=== PATIENT | female | born 1965 | race African-American/Black ===

== ENCOUNTER 2017-10-18 08:13 | Emergency (ER) | payer MEDICAID, MEDICARE ==
[2017-10-18 08:50] VITALS: BP 114/85
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
--- NOTE | 2017-10-18 10:07 | RADIOLOGY REPORT (SQ) ---
EXAM DESCRIPTION: WRIST LEFT 3 VIEWS COMPLETED DATE/TIME: 10/18/2017 9:47 am REASON FOR STUDY: wrist pain COMPARISON: None. NUMBER OF VIEWS: Four views. TECHNIQUE: AP, lateral, oblique, and scaphoid radiographic images acquired of the left wrist. LIMITATIONS: None. FINDINGS: MINERALIZATION: Normal. BONES: No acute fracture or dislocation. No worrisome bone lesions. Normal alignment. Mild degenerati ve change at the 1st carpometacarpal joint with mild sclerosis and small osteophytes. JOINTS: No erosions. No jose-articular osteopenia. Soft tissue calcification at the base of thumb. SOFT TISSUES: No swelling. No calcifications. OTHER: No other significant finding. IMPRESSION: MILD DEGENERATIVE CHANGES AT THE BASE OF THE THUMB. NO ACUTE FINDINGS. NO SIGNIFICANT BONY FINDINGS. TECHNICAL DOCUMENTATION: JOB ID: [id number]- All Rights Reserved
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
[2017-10-18] MEDS ORDERED: ACETAMINOPHEN 325 MG TABLET PO ONE (11:36)
== END 2017-10-18 11:50 | disposition home or self-care (01) ==
LOC: ER 08:13
DX: H57.11 Ocular pain, right eye (principal); M25.532 Pain in left wrist; F32.9 Major depressive disorder, single episode, unspecified; R51 Headache; Z98.890 Other specified postprocedural states; Z87.891 Personal history of nicotine dependence
CPT/HCPCS: 99284

== ENCOUNTER 2017-10-21 10:03 | Emergency (ER) | payer MEDICARE ==
[2017-10-21] MEDS ORDERED: OXYCODONE-ACETAMINOPHEN 5-325 MG TABLET PO ONE (10:32)
[2017-10-21] MEDS ORDERED: TETRACAINE HCL 0.5% OPH SOLN 2 ML OU ONE (10:32)
[2017-10-21] MEDS ORDERED: ACETAZOLAMIDE 250 MG TABLET PO ONE (13:32)
[2017-10-21] MEDS ORDERED: ACETAZOLAMIDE 250 MG TABLET ONE (13:44)
[2017-10-21] MEDS ORDERED: DORZOLAMIDE HCL 2%/TIMOLOL MALEAT 0.5% OPH SOLN 10 ML OD ONE (13:45)
--- NOTE | 2017-10-21 14:33 | ER Document Report ---
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 Patient presents to the emergency room with a headache. She states she has been off of her drops that she states of her pressure of her right eye. Patient denies any fever, chills. She does state she has been having some abdominal pain but she is requesting food during my exam. TRAVEL OUTSIDE OF THE [place] IN LAST 30 DAYS: No - HPI Onset: Other - Patient has had symptoms for the last several months Onset/Duration: Gradual Quality of pain: Dull Severity: Mild Pain Level: 1 Associated symptoms: denies: Chest pain, Fever, Shortness of breath Exacerbated by: Denies Relieved by: Denies Similar symptoms previously: Yes Recently seen / treated by doctor: No - Related Data Allergies/Adverse Reactions: acetaminophen [From Tylenol] Allergy (Verified 03/30/14 15:04) ibuprofen [From Motrin] Allergy (Verified 03/30/14 15:04) topiramate [From Topamax] Allergy (Verified 03/30/14 15:04) morphine [Morphine] Adverse Reaction (Verified 03/30/14 15:04) Past Medical History - General Information source: Patient - Social History Smoking Status: Never Smoker Cigarette use (# per day): No Chew tobacco use (# tins/day): No Frequency of alcohol use: Occasional Drug Abuse: None Lives with: Alone Family History: Reviewed & Not Pertinent Patient has suicidal ideation: No Patient has homicidal ideation: No - Past Medical History Cardiac Medical History: Denies: Hx DVT, Hx Heart Attack, Hx Hypercholesterolemia, Hx Hypertension Pulmonary Medical History: Reports: Hx Asthma, Hx Bronchitis Neurological Medical History: Reports: Hx Migraine Endocrine Medical History: Denies: Hx Diabetes Mellitus Type 2 Renal/ Medical History: Denies: Hx Peritoneal Dialysis GI Medical History: Denies: Hx Gastritis, Hx Gastroesophageal Reflux Disease Psychiatric Medical History: Reports: Hx Bipolar Disorder, Hx Depression Past Surgical History: Reports: Hx Section - x1, Hx Tubal Ligation - Immunizations Hx Diphtheria, Pertussis, Tetanus Vaccination: No Hx Pneumococcal Vaccination: 10/22/12 Review of Systems - Review of Systems Constitutional: denies: Chills, Fever EENT: See HPI Cardiovascular: No symptoms reported Respiratory: No symptoms reported Gastrointestinal: No symptoms reported Genitourinary: No symptoms reported Female Genitourinary: No symptoms reported Musculoskeletal: No symptoms reported Skin: No symptoms reported Hematologic/Lymphatic: No symptoms reported Neurological/Psychological: See HPI Physical Exam - Vital signs Vitals: Pulse Resp BP Pulse Ox 70 20 116/87 H 96 10/21/17 10:12 10/21/17 10:12 10/21/17 10:12 10/21/17 10:12 Notes: Physical exam: GENERAL: 52-year-old female, alert and oriented 3, no acute distress. Patient is sitting up drinking soda and eating chips. HEAD: Atraumatic, normocephalic. EYES: The right pupil is deviated to the right and cloudy which is chronic. There is injection of the sclera. The pupil is minimally reactive. Tonopen: pressure right eye 21, pressure left eye 18. ENT: TMs normal, nares patent, oropharynx clear without exudates. Moist mucous membranes. NECK: Normal range of motion, supple without obvious mass or JVD. LUNGS: Breath sounds clear to auscultation bilaterally and equal. No wheezes rales or rhonchi. HEART: Regular rate and rhythm without murmurs, rubs or gallops. ABDOMEN: Soft, normoactive bowel sounds. No tenderness to palpation. No guarding, no rebound. No masses appreciated. EXTREMITIES: Normal range of motion, no pitting or edema. No clubbing or cyanosis. NEUROLOGICAL: Cranial nerves II through XII grossly intact. Normal speech, moving all extremities. PSYCH: Normal mood, normal affect. SKIN: Warm, Dry, normal turgor, no rashes or lesions noted. 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 She has been noncompliant in the past. She does have a local chief airline radio operator (Dr. Rodriguez) but Dr. Rodriguez is not vocational education teacher today. Patient states she is got medicines at the pharmacy but the pharmacy does not open until tomorrow when she is not sure what drops she is on. There is no note of drops or medicines she is supposed to be on in the computer relating to her eye. I did contact [facility] and they did report that the patient is been on 3 medicines for her eyes and that she was written his prescriptions until February of 2018. She was last seen at [facility] 6 months ago. The medicines she is supposed to be on are: Diamox 250 mg TID Cosopt 1 drop twice daily to right eye Brimonoidine 2%: 1 drip twice daily to the left eye (left confirmed by patient) Patient was given Cosopt and diamox PO in the ER. 10/21/17 14:33 10/21/17 14:34 - Vital Signs Vital signs: Temp Pulse Resp BP Pulse Ox 97.3 F 81 20 129/75 H 100 10/21/17 15:13 10/21/17 15:13 10/21/17 15:13 10/21/17 15:13 10/21/17 15:13 Discharge - Discharge Clinical Impression: Headache Condition: Stable Disposition: HOME, SELF-CARE Additional Instructions: The medicines [facility] has you on for the eye: Diamox 250 mg three times daily Cosopt 1 drop twice daily to right eye Brimonoidine 2%: 1 drip twice daily to the left eye (left confirmed by patient) Follow-up with your eye doctor either locally or at [facility] records section supervisor your eyedrops tomorrow and start those medicines as previously prescribed. Return to the emergency room for worsening headache. For today: take the cosopt eye drops you were given: 1 drop to the right eye twice daily. Thank you for choosing [facility] for your care. The examination and treatment you have received in the Emergency Department today has been rendered on an emergency basis only and is not intended to be a substitute for complete medical care. You should contact your eye doctor as it is important that he or she examine re-evaluate you. The pain medicine you're taking prescribed as a narcotic. There are several important things you should know about this medicine: 1. This medicine contains Tylenol: It is important that you do not take Tylenol (or acetaminophen) while on this medicine. Tylenol is metabolized by the liver and taking too much Tylenol (acetaminophen) can lay to liver damage and even liver failure. 2. Taking narcotics for too long can lead to physical and mental dependence. Take this medicine only if really needed and in the lowest quantity to achieve pain relief. 3. Do not drink alcohol while on this medicine. Alcohol interacts with narcotics and the combination can be dangerous. 4. Do not drive or operate machinery while on this medicine. 5. Narcotics do cause constipation, so drink plenty of fluids and daily stool softeners. Prescriptions: Acetazolamide [Diamox 250 mg Tab] 250 mg PO Q8 #30 tablet Oxycodone HCl/Acetaminophen [Percocet 5-325 mg Tablet] 1 - 2 tab PO ASDIR PRN # 25 tablet PRN Reason:
[2017-10-21 15:23] VITALS: BP 129/75
== END 2017-10-21 15:22 | disposition home or self-care (01) ==
LOC: ER 10:03
DX: R51 Headache (principal); F31.9 Bipolar disorder, unspecified; H57.11 Ocular pain, right eye; R10.9 Unspecified abdominal pain
CPT/HCPCS: 99283; A9270 ×2; J3490

== ENCOUNTER → 2018-12-13 | Outpatient (CLI) | payer MEDICARE, MEDICAID ==
--- NOTE | 2018-12-13 09:44 | RADIOLOGY REPORT (SQ) ---
EXAM DESCRIPTION: WRIST LEFT 3 VIEWS COMPLETED DATE/TIME: 12/13/2018 9:24 am REASON FOR STUDY: M17.0 BILATERAL PRIMARY OSTEOARTHRITIS, M45.40 LUMBAGO WITH SCIATICA M17.0 BILATE RAL PRIMARY OSTEOARTHRITIS OF KNEE M54.40 LUMBAGO WITH SCIATICA, UNSPECIFIED SIDE M19.132 POST-TRAU MATIC OSTEOARTHRITIS, LEFT WRIST COMPARISON: None. NUMBER OF VIEWS: Three views. TECHNIQUE: AP, lateral, and oblique radiographic images acquired of the left wrist. LIMITATIONS: None. FINDINGS: MINERALIZATION: Normal. BONES: No acute fracture or dislocation. Slight to mild narrowing at the first carpometacarpal joint . A few small scattered cysst in the carpal bones of the wrist. Normal alignment. SOFT TISSUES: Small ossific density in the soft tissues adjacent to the radial aspect of the trapez ium bone of the wrist may be related prior remote injury/trauma. OTHER: No other significant finding. IMPRESSION: 1. No acute osseous findings. 2. Slight to mild degenerative changes suggested at the first carpometacarpal joint. TECHNICAL DOCUMENTATION: JOB ID: [id number] [employer]- All Rights Reserved Reading location - IP/workstation name: [email or web address]
--- NOTE | 2018-12-13 10:13 | RADIOLOGY REPORT (SQ) ---
EXAM DESCRIPTION: LUMBAR SPINE COMPLETE COMPLETED DATE/TIME: 12/13/2018 9:24 am REASON FOR STUDY: M17.0 BILATERAL PRIMARY OSTEOARTHRITIS, M45.40 LUMBAGO WITH SCIATICA M17.0 BILATE RAL PRIMARY OSTEOARTHRITIS OF KNEE M54.40 LUMBAGO WITH SCIATICA, UNSPECIFIED SIDE M19.132 POST-TRAU MATIC OSTEOARTHRITIS, LEFT WRIST COMPARISON: 05/14/2010 NUMBER OF VIEWS: Five views including obliques. TECHNIQUE: AP, lateral, oblique, and sacral radiographic images acquired of the lumbar spine. LIMITATIONS: None. FINDINGS: MINERALIZATION: Normal. SEGMENTATION: Normal. No transitional anatomy. ALIGNMENT: Tilting at the thoracolumbar spine. VERTEBRAE: Maintained height. No fracture or worrisome bone lesion. DISCS: Mild disc space narrowing versus patient positioning suggested at L3-4, L4-5, and L5-S1 versu s patient positioning. No significant osteophytes or end plate irregularity. POSTERIOR ELEMENTS: Pedicles and facets are intact. No pars defect or posterior arch defects. HARDWARE: None in the spine. PARASPINAL SOFT TISSUES: Normal. PELVIS: Intact as visualized. No fractures or worrisome bone lesions. SI joints intact. OTHER: No other significant finding. IMPRESSION: 1. Mild disc space narrowing versus patient positioning suggested L3-4, L4-5 and L5-S1. No acute osseous findings. 2. No acute osseous findings. TECHNICAL DOCUMENTATION: JOB ID: [id number]- All Rights Reserved Reading location - IP/workstation name: [email or web address]
--- NOTE | 2018-12-13 10:31 | RADIOLOGY REPORT (SQ) ---
EXAM DESCRIPTION: KNEE BILAT AP UPRIGHT COMPLETED DATE/TIME: 12/13/2018 9:24 am REASON FOR STUDY: M17.0 BILATERAL PRIMARY OSTEOARTHRITIS, M45.40 LUMBAGO WITH SCIATICA M17.0 BILATE RAL PRIMARY OSTEOARTHRITIS OF KNEE M54.40 LUMBAGO WITH SCIATICA, UNSPECIFIED SIDE M19.132 POST-TRAU MATIC OSTEOARTHRITIS, LEFT WRIST COMPARISON: None. NUMBER OF VIEWS: AP view right knee, AP view left knee TECHNIQUE: Bilateral standing bilateral knees. LIMITATIONS: None. FINDINGS: MINERALIZATION: Normal. RIGHT KNEE BONES: No acute fracture. No worrisome bone lesions. MEDIAL COMPARTMENT: Moderate joint space narrowing with mild osteophyte formation. No chondrocalcin osis. LATERAL COMPARTMENT: No significant osteophytes. No joint space narrowing. No chondrocalcinosis. LEFT KNEE BONES: No acute fracture. No worrisome bone lesions. MEDIAL COMPARTMENT: Mild joint space narrowing without osteophyte formation. No chondrocalcinosis. LATERAL COMPARTMENT: No significant osteophytes. No joint space narrowing. No chondrocalcinosis. IMPRESSION: Bilateral medial compartment joint space narrowing right greater than left TECHNICAL DOCUMENTATION: JOB ID: [id number]- All Rights Reserved Reading location - IP/workstation name: [email or web address]
== END ==
LOC: OD 08:59
PROVIDERS: ATTEND Internal Medicine
DX: M17.0 Bilateral primary osteoarthritis of knee (principal); M54.40 Lumbago with sciatica, unspecified side; M19.132 Post-traumatic osteoarthritis, left wrist
CPT/HCPCS: 72110; 73565

== ENCOUNTER 2018-12-24 13:54 | Emergency (ER) | payer MEDICARE, MEDICAID ==
[2018-12-24 14:04] VITALS: BP 123/77
--- NOTE | 2018-12-24 15:37 | ER Document Report ---
ED Medical Screen (RME) - General Chief Complaint: Abdominal Pain Stated Complaint: ABDOMINAL PAIN Time Seen by Provider: 12/24/18 15:27 Primary Care Provider: JON RAND MD [Primary Care Provider] - Follow up as needed Mode of Arrival: Ambulatory Information source: Patient Notes: 53-year-old female presented to ED for complaint of abdominal pain generalized b ack pain generalized "stinky urine "and pain in her mouth from she thinks sexually transmitted diseases. States her mouth is burning too much to have a temperature checked. She states she would like to just have some urine done and as telemetry was wrong with her that way. I have explained to her that she would need blood and urine and a swab of her mouth. She has stated that she may give him one chance to get the blood but after that no. She also complains of a runny nose and congestion. Patient is alert and oriented respirations regular and unlabored speaking in full sentences. I have greeted and performed a rapid initial assessment of this patient. A comprehensive ED assessment and evaluation of the patient, analysis of test results and completion of medical decision making process will be conducted by an additional ED providers. TRAVEL OUTSIDE OF THE [place] IN LAST 30 DAYS: No - Related Data Allergies/Adverse Reactions: acetaminophen [From Tylenol] Allergy (Verified 12/24/18 13:55) ibuprofen [From Motrin] Allergy (Verified 12/24/18 13:55) topiramate [From Topamax] Allergy (Verified 12/24/18 13:55) morphine [Morphine] Adverse Reaction (Verified 12/24/18 13:55) Past Medical History - Social History Frequency of alcohol use: Occasional Drug Abuse: None - Past Medical History Cardiac Medical History: Denies: Hx DVT, Hx Heart Attack, Hx Hypercholesterolemia, Hx Hypertension Pulmonary Medical History: Reports: Hx Asthma, Hx Bronchitis Neurological Medical History: Reports: Hx Migraine Endocrine Medical History: Denies: Hx Diabetes Mellitus Type 2 Renal/ Medical History: Denies: Hx Peritoneal Dialysis GI Medical History: Denies: Hx Gastritis, Hx Gastroesophageal Reflux Disease Psychiatric Medical History: Reports: Hx Bipolar Disorder, Hx Depression Past Surgical History: Reports: Hx Section - x1, Hx Tubal Ligation - Immunizations Hx Diphtheria, Pertussis, Tetanus Vaccination: No Physical Exam - Vital signs Vitals: Pulse Resp BP Pulse Ox 99 18 123/77 98 12/24/18 14:02 12/24/18 14:02 12/24/18 14:02 12/24/18 14:02 Course - Vital Signs Vital signs: Temp Pulse Resp BP Pulse Ox 99 18 123/77 98 12/24/18 14:02 12/24/18 14:02 12/24/18 14:02 12/24/18 14:02 Doctor's Discharge - Discharge Referrals: JON RAND MD [Primary Care Provider] - Follow up as needed
[2018-12-24 16:15] LABS: ABSOLUTE BASOPHILS # (AUTO) 0.1 10^3/uL (0.0-0.2); ABSOLUTE EOSINOPHILS # (AUTO) 0.2 10^3/uL (0.0-0.6); ABSOLUTE LYMPHOCYTES (AUTO) 4.9 10^3/uL (0.5-4.7); ABSOLUTE MONOCYTES (AUTO) 0.7 10^3/uL (0.1-1.4); ABSOLUTE NEUT (AUTO) 5.9 10^3/uL (1.7-8.2); BASOPHILS % (AUTO) 0.5 % (0-2); EOSINOPHILS % (AUTO) 1.8 % (0-6); HEMATOCRIT 41.6 % (36.0-47.0); HEMOGLOBIN 13.8 g/dL (12.0-15.5); LYMPHOCYTES % (AUTO) 41.6 % (13-45); MEAN CORPUSCULAR HEMOGLOBIN 27.9 pg (27.0-33.4); MEAN CORPUSCULAR HGB CONC 33.1 g/dL (32.0-36.0); MEAN CORPUSCULAR VOLUME 84 fl (80-97); MONOCYTES % (AUTO) 5.8 % (3-13); PLATELET COUNT 243 10^3/uL (150-450); RED BLOOD COUNT 4.94 10^6/uL (3.72-5.28); RED CELL DISTRIBUTION WIDTH 16.3 % (11.5-14.0); SEGMENTED NEUTROPHILS % (AUTO) 50.3 % (42-78); TOTAL CELLS COUNTED % (AUTO) 100 %; WHITE BLOOD COUNT 11.8 10^3/uL (4.0-10.5)
[2018-12-24 16:27] LABS: APPEARANCE,URINE CLEAR; BILIRUBIN,URINE NEGATIVE (NEGATIVE); COLOR,URINE YELLOW; GLUCOSE, URINE NEGATIVE (NEGATIVE); KETONES,URINE NEGATIVE (NEGATIVE); LEUKOCYTE ESTERASE,URINE NEGATIVE (NEGATIVE); NITRITE,URINE NEGATIVE (NEGATIVE); PROTEIN,URINE NEGATIVE (NEGATIVE); URINE SPECIFIC GRAVITY 1.017
[2018-12-24 16:34] LABS: BLOOD UREA NITROGEN 11 mg/dL (7-20); CALCIUM 10.1 mg/dL (8.4-10.2); GLUCOSE 78 mg/dL (75-110)
[2018-12-24 16:35] LABS: ALANINE AMINOTRANSFERASE 29 U/L (9-52); ALBUMIN 4.7 g/dL (3.5-5.0); ALKALINE PHOSPHATASE 100 U/L (38-126); ANION GAP 11 (5-19); ASPARTATE AMINO TRANSFERASE 25 U/L (14-36); BILIRUBIN,DIRECT 0.2 mg/dL (0.0-0.4); BILIRUBIN,TOTAL 0.6 mg/dL (0.2-1.3); CARBON DIOXIDE 29 mmol/L (22-30); CHLORIDE 104 mmol/L (98-107); TOTAL PROTEIN 8.1 g/dL (6.3-8.2)
[2018-12-24 16:56] LABS: URINE AMPHETAMINES SCREEN NEGATIVE; URINE BARBITURATES SCREEN NEGATIVE; URINE BENZODIAZEPINES SCREEN NEGATIVE; URINE COCAINE SCREEN NEGATIVE; URINE MARIJUANA (THC) SCREEN NEGATIVE; URINE METHADONE SCREEN NEGATIVE
[2018-12-24 16:59] LABS: URINE PHENCYCLIDINE SCREEN NEGATIVE
[2018-12-24 17:57] LABS: CHLAM PCR NOT DETECTED (NOT DETECT); GON PCR NOT DETECTED (NOT DETECT)
--- NOTE | 2018-12-24 18:16 | ER Document Report ---
ED GI/ - General Chief Complaint: Abdominal Pain Stated Complaint: ABDOMINAL PAIN Time Seen by Provider: 12/24/18 18:15 Primary Care Provider: JON RAND MD [Primary Care Provider] - Follow up as needed Mode of Arrival: Ambulatory Information source: Patient Notes: HISTORY OF PRESENT ILLNESS: Patient is a 53-year-old female with a past medical history of migraines and bipolar disorder who presents with recurrent headaches that reportedly has been ongoing each day for the past "several weeks." Location: Global Onset: Gradual Provocation: Unknown Quality: Throbbing Radiation: None Severity: Moderate to severe Timing: Constant History of headaches: Yes Recent head injury: None Vision changes: None Trouble walking: None Associated symptoms: No fevers or chills, no confusion or disorientation, no cough or congestion REVIEW OF SYSTEMS: CONSTITUTIONAL : Positive for fever but no chills. Denies recent illness. EENT: Denies eye, ear, throat, or mouth pain or symptoms. Denies nasal or sinus congestion. CARDIOVASCULAR: Denies chest pain. RESPIRATORY: Denies cough, cold, or chest congestion. Denies shortness of breath, difficulty breathing, or wheezing. GASTROINTESTINAL: Positive for diffuse abdominal pain. Denies nausea, vomiting, or diarrhea. Denies constipation. GENITOURINARY: Denies difficulty urinating, painful urination, burning, frequency, or blood in urine. FEMALE GENITOURINARY: Denies vaginal bleeding, abnormal or irregular periods. MUSCULOSKELETAL: Denies body aches. Denies neck or back pain or joint pain or swelling. SKIN: Denies rash or skin lesions. HEMATOLOGIC : Denies easy bruising or bleeding. LYMPHATIC: Denies swollen, enlarged glands. NEUROLOGICAL: Positive for headaches. Denies altered mental status or loss of consciousness. Denies weakness or paralysis or loss of use of either side. Denies problems with gait or speech. Denies sensory or motor loss. PSYCHIATRIC: Denies anxiety or stress or depression. All other systems reviewed and negative. PHYSICAL EXAMINATION: GENERAL: Well-appearing, well-nourished and in no acute distress. HEAD: Atraumatic, normocephalic. No scalp deformity, depression, or crepitance. EYES: Pupils are 3 mm and equal/round/reactive to light, extraocular movements i ntact, sclera anicteric, conjunctiva are normal. ENT: Nares patent bilaterally, oropharynx clear without exudates or palatal petechia. Moist mucous membranes. No tonsil hypertrophy. NECK: Normal range of motion, supple without lymphadenopathy. LUNGS: Breath sounds present, equal, and clear to auscultation bilaterally. No wheezes, rales, or rhonchi. HEART: Regular rate and rhythm without murmurs, rubs, or gallops. 2+ peripheral pulses. Normal capillary refill. ABDOMEN: Soft, nontender, nondistended. Normoactive bowel sounds. No guarding, no rebound. No masses appreciated. BACK: Normal contour, no midline tenderness. Rectal exam deferred. PELVC: Deferred. EXTREMITIES: Normal range of motion, no pitting or edema. No cyanosis. NEUROLOGICAL: No focal neurological deficits. Cranial nerves III-XII grossly intact. Moves all extremities spontaneously and on command. PSYCH: Normal mood, normal affect. No suicidal thoughts/ideations. No homicidal thoughts/ideations. No hallucinations. SKIN: Warm, dry, normal turgor, no rashes or lesions noted. ASSESSMENT AND PLAN: This patient is a 53-year-old female who presents with multiple complaints including diffuse vague abdominal pain as well as acute on chronic headaches. Patient is nontoxic-appearing, and initial workup shows normal blood work and urinalysis. 1. Will give oral Reglan with Imitrex and reassess. 2. Will likely discharge the patient if improved. TRAVEL OUTSIDE OF THE [place] IN LAST 30 DAYS: No - Related Data Allergies/Adverse Reactions: acetaminophen [From Tylenol] Allergy (Verified 12/24/18 13:55) ibuprofen [From Motrin] Allergy (Verified 12/24/18 13:55) topiramate [From Topamax] Allergy (Verified 12/24/18 13:55) morphine [Morphine] Adverse Reaction (Verified 12/24/18 13:55) Past Medical History - General Information source: Patient - Social History Smoking Status: Current Every Day Smoker Chew tobacco use (# tins/day): No Frequency of alcohol use: Occasional Drug Abuse: None Lives with: Alone Family History: Reviewed & Not Pertinent Patient has suicidal ideation: No Patient has homicidal ideation: No - Past Medical History Cardiac Medical History: Reports: None Denies: Hx DVT, Hx Heart Attack, Hx Hypercholesterolemia, Hx Hypertension Pulmonary Medical History: Reports: Hx Asthma, Hx Bronchitis EENT Medical History: Reports: None Neurological Medical History: Reports: Hx Migraine Endocrine Medical History: Reports: None. Denies: Hx Diabetes Mellitus Type 2 Renal/ Medical History: Reports: None. Denies: Hx Peritoneal Dialysis Malignancy Medical History: Reports: None GI Medical History: Reports: None. Denies: Hx Gastritis, Hx Gastroesophageal Reflux Disease Musculoskeletal Medical History: Reports None Skin Medical History: Reports None Psychiatric Medical History: Reports: Hx Bipolar Disorder, Hx Depression Traumatic Medical History: Reports: None Infectious Medical History: Reports: None Past Surgical History: Reports: Hx Section - x1, Hx Tubal Ligation - Immunizations Immunizations up to date: Yes Hx Diphtheria, Pertussis, Tetanus Vaccination: No History of Influenza Vaccine for 07/2017 - 12/2017 Season: No Hx Pneumococcal Vaccination: 10/22/12 Physical Exam - Vital signs Vitals: Pulse Resp BP Pulse Ox 99 18 123/77 98 12/24/18 14:02 12/24/18 14:02 12/24/18 14:02 12/24/18 14:02 Course - Vital Signs Vital signs: Temp Pulse Resp BP Pulse Ox 99 14 123/77 100 12/24/18 14:02 12/24/18 18:00 12/24/18 14:02 12/24/18 18:00 - Laboratory Result Diagrams: 12/24/18 15:55 12/24/18 15:55 Laboratory results interpreted by me: 12/24/18 12/24/18 15:55 15:55 WBC 11.8 H RDW 16.3 H Absolute Lymphocytes 4.9 H Urine Urobilinogen 2.0 H Discharge - Discharge Clinical Impression: Chronic headache Qualifiers: Headache type: cluster Intractability: not intractable Qualified Code(s): G44.029 - Chronic cluster headache, not intractable Condition: Good Disposition: ELOPED Referrals: JON RAND MD [Primary Care Provider] - Follow up as needed
[2018-12-24] MEDS ORDERED: METOCLOPRAMIDE HCL 10 MG TABLET PO ONE (18:50)
[2018-12-24] MEDS ORDERED: SUMATRIPTAN SUCCINATE 50 MG TABLET PO ONE (18:51)
== END 2018-12-24 19:38 | disposition left against medical advice (07) ==
LOC: ER 13:54
DX: G44.029 Chronic cluster headache, not intractable (principal); R10.84 Generalized abdominal pain; F17.200 Nicotine dependence, unspecified, uncomplicated; J45.909 Unspecified asthma, uncomplicated; E11.9 Type 2 diabetes mellitus without complications; Z88.6 Allergy status to analgesic agent; Z53.20 Procedure and treatment not carried out because of patient's decision for unspecified reasons
CPT/HCPCS: 36415; 80053; 80307; 81001; 85025; 87086; 87491; 87591

== ENCOUNTER 2019-09-13 08:44 | Emergency (ER) | payer MEDICARE, MEDICAID ==
--- NOTE | 2019-09-13 10:32 | ER Document Report ---
ED General - General TRAVEL OUTSIDE OF THE [place] IN LAST 30 DAYS: No - General Chief Complaint: Laceration Stated Complaint: THUMB LACERATION Time Seen by Provider: 09/13/19 10:32 Primary Care Provider: JON RAND MD [Primary Care Provider] - 09/23/19 (Please be seen by her primary care doctor in 10 to 14 days for suture removal. Keep dry for 24 hours and clean and shower as usual.) - Related Data Allergies/Adverse Reactions: acetaminophen [From Tylenol] Allergy (Verified 12/24/18 13:55) ibuprofen [From Motrin] Allergy (Verified 12/24/18 13:55) topiramate [From Topamax] Allergy (Verified 12/24/18 13:55) morphine [Morphine] Adverse Reaction (Verified 12/24/18 13:55) Past Medical History - Social History Smoking Status: Never Smoker Chew tobacco use (# tins/day): No Frequency of alcohol use: None Drug Abuse: None Family History: Reviewed & Not Pertinent Patient has suicidal ideation: No Patient has homicidal ideation: No - Past Medical History Cardiac Medical History: Denies: Hx DVT, Hx Heart Attack, Hx Hypercholesterolemia, Hx Hypertension Pulmonary Medical History: Reports: Hx Asthma, Hx Bronchitis Neurological Medical History: Reports: Hx Migraine Endocrine Medical History: Denies: Hx Diabetes Mellitus Type 2 Renal/ Medical History: Denies: Hx Peritoneal Dialysis GI Medical History: Denies: Hx Gastritis, Hx Gastroesophageal Reflux Disease Psychiatric Medical History: Reports: Hx Bipolar Disorder, Hx Depression Past Surgical History: Reports: Hx Section - x1, Hx Tubal Ligation - Immunizations Immunizations up to date: Yes Hx Diphtheria, Pertussis, Tetanus Vaccination: No Hx Pneumococcal Vaccination: 10/22/12 Physical Exam - Vital signs Vitals: Temp Pulse BP Pulse Ox 97.4 F 82 121/81 97 09/13/19 08:55 09/13/19 08:55 09/13/19 08:55 09/13/19 08:55 Course - Vital Signs Vital signs: Temp Pulse Resp BP Pulse Ox 97.9 F 68 16 107/76 100 09/13/19 13:04 09/13/19 13:04 09/13/19 08:58 09/13/19 13:04 09/13/19 13:04 Discharge - Discharge Clinical Impression: Thumb laceration Qualifiers: Encounter type: initial encounter Damage to nail status: without damage Foreign body presence: without foreign body Laterality: left Qualified Code(s): S61.012A - Laceration without foreign body of left thumb without damage to nail, initial encounter Condition: Good Disposition: HOME, SELF-CARE Instructions: Laceration Care ([facility]), Tetanus Immunization Given ([facility]) Prescriptions: Acetaminophen [Non-Aspirin] 975 mg PO Q6HP PRN 5 Days tablet PRN Reason: Pain Scale Of 1 Referrals: JON RAND MD [Primary Care Provider] - 09/23/19 (Please be seen by her primary care doctor in 10 to 14 days for suture removal. Keep dry for 24 hours and clean and shower as usual.)
[2019-09-13] MEDS ORDERED: ACETAMINOPHEN 325 MG TABLET PO ONE (12:02)
[2019-09-13] MEDS ORDERED: LIDOCAINE 1%/EPINEPHRINE INJ 20 ML VIAL INJ ONE (12:02)
[2019-09-13] MEDS ORDERED: BACITRACIN OPH OINT 3.5 GM EXT ONE (12:10)
[2019-09-13] MEDS ORDERED: DIPH/PERTUSS(ACELL)/TETANUS VAC/PF 0.5 ML SYR (>=10YO) IM ONE (13:14)
[2019-09-13 14:02] VITALS: BP 130/78
== END 2019-09-13 14:14 | disposition home or self-care (01) ==
LOC: ER 08:44
DX: S61.012D Laceration without foreign body of left thumb without damage to nail, subsequent encounter (principal); X58.XXXD Exposure to other specified factors, subsequent encounter; Z88.6 Allergy status to analgesic agent; Z23 Encounter for immunization
CPT/HCPCS: 99282; 90471; 90715; 12001; A9270 ×2; J3490

== ENCOUNTER 2019-12-25 17:52 | Emergency (ER) | payer MEDICARE, MEDICAID ==
--- NOTE | 2019-12-25 18:08 | ER Document Report ---
ED Medical Screen (RME) - General Chief Complaint: Vaginal Bleeding Stated Complaint: VAGINAL BLEEDING,HEADACHE,VOMITING Time Seen by Provider: 12/25/19 18:03 Primary Care Provider: [facility] [Provider Group] - Follow up in 3-5 days JON RAND MD [Primary Care Provider] - Follow up as needed Mode of Arrival: Ambulatory Information source: Patient Notes: 54-year-old female presents to ED for for dark red vaginal blood with blood clots. With abdominal cramping and back pain. She states she has not had a menstrual cycle in about 3 years. She states that she has had frequent urination frequently headaches vomiting and nausea for the last couple days she has been tired a lot more. She works on a construction site. 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 She has had some pain with breathing since she started working on a construction site. After performing a Medical Screening Examination, I spoke with the patient at length in regards to leaving the hospital against medical advice. I do not believe the patient should leave but the patient is alert oriented x4, understands the risks and benefits of staying and leaving including disability and . Pt understands that he can return at any time for further care and is more than welcome to do so. Pt verbalizes this understanding. TRAVEL OUTSIDE OF THE [place] IN LAST 30 DAYS: No - HPI Onset: Other - See HPI Onset/Duration: Gradual Quality of pain: Achy, Cramping Severity: Moderate Pain Level: 2 Associated Symptoms: Abdominal pain, Body/muscle aches, Cough (productive), Shortness of breath, Vaginal bleeding Exacerbated by: Movement, Coughing Relieved by: Denies Similar symptoms previously: No Recently seen / treated by doctor: No - Related Data Smoking: Cigarettes - 3 to 4 cigarettes a day Frequency of alcohol use: Social Drug Abuse: Marijuana Allergies/Adverse Reactions: acetaminophen [From Tylenol] Allergy (Verified 12/25/19 18:11) ibuprofen [From Motrin] Allergy (Verified 12/25/19 18:11) topiramate [From Topamax] Allergy (Verified 12/25/19 18:11) morphine [Morphine] Adverse Reaction (Verified 12/25/19 18:11) Past Medical History - General Information source: Patient - Social History Cigarette use (# per day): Yes - 3-4 Frequency of alcohol use: Social Drug Abuse: Marijuana Occupation: Construction Lives with: Spouse/Significant other Pulmonary Medical History: Reports: Hx Asthma, Hx Bronchitis EENT Medical History: Reports: None Neurological Medical History: Reports: Hx Migraine Endocrine Medical History: Reports: None Renal/ Medical History: Reports: None Malignancy Medical History: Reports: None GI Medical History: Reports: None Musculoskeltal Medical History: Reports None Skin Medical History: Reports None Psychiatric Medical History: Reports: Hx Bipolar Disorder, Hx Depression Traumatic Medical History: Reports: None Infectious Medical History: Reports: None Past Surgical History: Reports: Hx Section - x1, Hx Tubal Ligation - Immunizations Immunizations up to date: Yes Hx Diphtheria, Pertussis, Tetanus Vaccination: Yes - 09/13/19 boostrix given Physical Exam - Vital signs Vitals: Temp Pulse Resp BP Pulse Ox 98.2 F 72 20 118/75 99 12/25/19 18:05 12/25/19 18:05 12/25/19 18:05 12/25/19 18:05 12/25/19 18:05 Course - Vital Signs Vital signs: Temp Pulse Resp BP Pulse Ox 98.2 F 72 20 118/75 99 12/25/19 18:05 12/25/19 18:05 12/25/19 18:05 12/25/19 18:05 12/25/19 18:05 - Laboratory Result Diagrams: 12/25/19 18:18 12/25/19 18:18 Laboratory results interpreted by me: 12/25/19 12/25/19 18:18 18:18 WBC 11.5 H RDW 17.1 H Urine Protein 30 H Urine Blood LARGE H Urine Urobilinogen 4.0 H Leukocyte Esterase Rfl TRACE H Doctor's Discharge - Discharge Clinical Impression: Dysmenorrhea Condition: Stable Disposition: HOME, SELF-CARE Instructions: Dysmenorrhea ([facility]) Additional Instructions: Maintain fluid intake Proper hygienic technique Keep the skin clean Safe sexual practices with condoms everytime Tylenol/ibuprofen as needed F/u with your PCM/OBGYN in 3-5 days for a recheck Return to the ED with any development of CROOKS/fever, trouble with vision, eye redness, worsening pain, urethral discharge, urinary retention, blood in the urine, flank pain, abdominal pain, n/v, Chest Pain, shortness of breath, joint pains, trouble breathing, or any other worsening/concerning symptoms as needed otherwise. Prescriptions: Promethazine HCl [Phenergan 25 mg Tablet] 1 tab PO BID #10 tablet Forms: Smoking Cessation Education, Return to Work Referrals: [facility] [Provider Group] - Follow up in 3-5 days JON RAND MD [Primary Care Provider] - Follow up as needed
[2019-12-25 18:15] VITALS: BP 118/75
[2019-12-25 18:49] LABS: ABSOLUTE BASOPHILS # (AUTO) 0.1 10^3/uL (0.0-0.2); ABSOLUTE EOSINOPHILS # (AUTO) 0.2 10^3/uL (0.0-0.6); ABSOLUTE LYMPHOCYTES (AUTO) 4.6 10^3/uL (0.5-4.7); ABSOLUTE MONOCYTES (AUTO) 0.6 10^3/uL (0.1-1.4); ABSOLUTE NEUT (AUTO) 6.1 10^3/uL (1.7-8.2); BASOPHILS % (AUTO) 0.5 % (0-2); HEMATOCRIT 38.2 % (36.0-47.0); HEMOGLOBIN 12.7 g/dL (12.0-15.5); LYMPHOCYTES % (AUTO) 39.6 % (13-45); MEAN CORPUSCULAR HEMOGLOBIN 28.2 pg (27.0-33.4); MEAN CORPUSCULAR HGB CONC 33.3 g/dL (32.0-36.0); MEAN CORPUSCULAR VOLUME 85 fl (80-97); MONOCYTES % (AUTO) 5.3 % (3-13); PLATELET COUNT 223 10^3/uL (150-450); RED BLOOD COUNT 4.51 10^6/uL (3.72-5.28); RED CELL DISTRIBUTION WIDTH 17.1 % (11.5-14.0); SEGMENTED NEUTROPHILS % (AUTO) 52.6 % (42-78); TOTAL CELLS COUNTED % (AUTO) 100 %; WHITE BLOOD COUNT 11.5 10^3/uL (4.0-10.5)
[2019-12-25 18:59] LABS: APPEARANCE,URINE CLOUDY; BILIRUBIN,URINE NEGATIVE (NEGATIVE); GLUCOSE, URINE NEGATIVE (NEGATIVE); KETONES,URINE NEGATIVE (NEGATIVE); PROTEIN,URINE 30 mg/dL (NEGATIVE); URINE SPECIFIC GRAVITY 1.025
[2019-12-25 19:01] LABS: COLOR,URINE YELLOW
[2019-12-25 19:05] LABS: ALKALINE PHOSPHATASE 100 U/L (38-126); ANION GAP 7 (5-19); ASPARTATE AMINO TRANSFERASE 20 U/L (14-36); BILIRUBIN,DIRECT 0.3 mg/dL (0.0-0.4); BILIRUBIN,TOTAL 0.4 mg/dL (0.2-1.3); BLOOD UREA NITROGEN 12 mg/dL (7-20); CARBON DIOXIDE 26 mmol/L (22-30); CHLORIDE 107 mmol/L (98-107); GLUCOSE 94 mg/dL (75-110); TOTAL PROTEIN 7.3 g/dL (6.3-8.2)
--- NOTE | 2019-12-25 19:07 | RADIOLOGY REPORT (SQ) ---
EXAM DESCRIPTION: U/S NON-OB PELVIS TV W/O DOP COMPLETED DATE/TIME: 12/25/2019 6:56 pm REASON FOR STUDY: Vaginal bleeding and pelvic pain COMPARISON: None. TECHNIQUE: Dynamic and static grayscale images acquired of the pelvis via transvaginal approach and recorded on PACS. Additional selected color Doppler and spectral images recorded. LIMITATIONS: None. FINDINGS: UTERUS: Contour normal. No mass. ENDOMETRIAL STRIPE: No focal or generalized thickening. Small amount of fluid. No masses. CERVIX: No nabothian cysts. RIGHT OVARY AND DOPPLER: Normal size. No worrisome masses. Normal arterial vascular flow without evid ence for torsion. LEFT OVARY AND DOPPLER: Normal size. No worrisome masses. Normal arterial vascular flow without evide nce for torsion. FREE FLUID: Trace free fluid adjacent to the right ovary. OTHER: No other significant finding. MEASUREMENTS: UTERUS: 3.5 x 4.7 x 7.2 cm. ENDOMETRIAL STRIPE: I have 4 mm. RIGHT OVARY: 1.3 x 1.4 x 2.3 cm. LEFT OVARY: 1.0 x 2.1 x 2.0 cm. IMPRESSION: UNREMARKABLE TRANSVAGINAL PELVIC ULTRASOUND. SMALL AMOUNT OF FLUID IN THE ENDOMETRIAL C AVITY. TRACE FREE FLUID. TECHNICAL DOCUMENTATION: JOB ID: [id number] [employer]- All Rights Reserved Rev Reading location - IP/workstation name: [email or web address]
--- NOTE | 2019-12-25 20:03 | ER Document Report ---
HPI - HPI Time Seen by Provider: 12/25/19 18:03 Pain Level: 2 Notes: Patient is a 54-year-old female with history of tobacco abuse and chronic back pain who presents for vaginal bleeding that began today. Patient states that the bleeding has been light. She has not had a menstrual cycle in the past few years. She did have an episode of nausea and vomiting this morning which is since resolved. Patient states that she does have an occasional cough. Patient states that she is exposed to multiple chemicals such as asbestos at her workplace. On occasion she will have headaches. Patient states that her primary concern however is the menstrual bleeding which is what prompted her to come here for evaluation. She is otherwise urinating normally and having normal bowel movements. Denies any current headache, fever, head injury, neck pain, changes in vision/speech/mentation/hearing, URI, sore throat, chest pain, palpitations, syncope, cough, shortness of breath, wheeze, dyspnea, abdominal pain, current nausea/vomiting/diarrhea, urinary retention, dysuria, hematuria, or rash. - ROS Systems Reviewed and Negative: Yes All other systems reviewed and negative - REPRODUCTIVE Reproductive: REPORTS: Abnormal bleeding / discharge. DENIES: : Past Medical History - General Information source: Patient - Social History Smoking Status: Current Every Day Smoker Cigarette use (# per day): Yes - 3-4 Chew tobacco use (# tins/day): No Frequency of alcohol use: Social Drug Abuse: Marijuana Occupation: Construction Lives with: Spouse/Significant other Family History: Reviewed & Not Pertinent Patient has suicidal ideation: No Patient has homicidal ideation: No - Past Medical History Cardiac Medical History: Denies: Hx DVT, Hx Heart Attack, Hx Hypercholesterolemia, Hx Hypertension Pulmonary Medical History: Reports: Hx Asthma, Hx Bronchitis EENT Medical History: Reports: None Neurological Medical History: Reports: Hx Migraine Endocrine Medical History: Reports: None. Denies: Hx Diabetes Mellitus Type 2 Renal/ Medical History: Reports: None. Denies: Hx Peritoneal Dialysis Malignancy Medical History: Reports: None GI Medical History: Reports: None. Denies: Hx Gastritis, Hx Gastroesophageal Reflux Disease Musculoskeletal Medical History: Reports None Skin Medical History: Reports None Psychiatric Medical History: Reports: Hx Bipolar Disorder, Hx Depression Traumatic Medical History: Reports: None Infectious Medical History: Reports: None Past Surgical History: Reports: Hx Section - x1, Hx Tubal Ligation - Immunizations Immunizations up to date: Yes Hx Diphtheria, Pertussis, Tetanus Vaccination: Yes - 09/13/19 boostrix given Hx Pneumococcal Vaccination: 10/22/12 Vertical Provider Document - CONSTITUTIONAL Agree With Documented VS: Yes Notes: PHYSICAL EXAMINATION: GENERAL: Well-appearing, well-nourished and in no acute distress. HEAD: Atraumatic, normocephalic. EYES: Pupils equal round and reactive to light, extraocular movements intact, sclera anicteric, conjunctiva are normal. ENT: Nares patent and without discharge. oropharynx clear without exudates. No tonsilar hypertrophy or erythema. Moist mucous membranes. NECK: Normal range of motion, supple without lymphadenopathy LUNGS: Breath sounds clear to auscultation bilaterally and equal. No wheezes rales or rhonchi. HEART: Regular rate and rhythm without murmurs, rubs, gallops. ABDOMEN: Soft, nontender, nondistended abdomen. No guarding, no rebound. Normal bowel sounds present. No CVA tenderness bilaterally. Musculoskeletal: FROM to passive/active. Strength 5+/5. Extremities: No cyanosis, clubbing, or edema b/l. Peripheral pulses 2+. Capillary refill less than 3 seconds. NEUROLOGICAL: Normal speech, normal gait. PSYCH: Normal mood, normal affect. SKIN: Warm, Dry, normal turgor, no rashes or lesions noted. - INFECTION CONTROL TRAVEL OUTSIDE OF THE [place] IN LAST 30 DAYS: No Course - Re-evaluation Re-evalutation: 12/25/19 20:01 Patient is an afebrile, well-hydrated, 54-year-old female who presents to the ED with dysmenorrhea. Vitals are acceptable without any significant tachycardia, tachypnea, or hypoxia. PE is otherwise unremarkable. Her abd is soft and non- tender throughout. Labs unremarkable/acceptable. Patient is nontoxic-appearing is tolerating p.o. without any difficulties. Transvaginal ultrasound was also unremarkable for any acute pathology aside from trace free fluid. No other labs or imaging warranted at this time based on H&P. Low suspicion/risk for acute appendicitis, bowel obstruction, acute cholecystitis, acute cholangitis, perforated diverticulitis, incarcerated hernia, pancreatitis, perforated ulcer, peritonitis, sepsis, pelvic inflammatory disease, ectopic , tubo- ovarian abscess, ovarian torsion, or other systemic emergent condition at this time. Patient is aware that her condition can change from initial presentation and she needs to monitor symptoms closely and seek medical attention if any acute changes. I will send her home with prescription for phenergan PO. Conservative measures otherwise for symptoms. Recheck with your PCM/OBGYN in 3- 5 days. Return to the ED with any worsening/concerning symptoms otherwise as reviewed in discharge. Patient is in agreement. - Vital Signs Vital signs: Temp Pulse Resp BP Pulse Ox 98.2 F 72 20 118/75 99 12/25/19 18:05 12/25/19 18:05 12/25/19 18:05 12/25/19 18:05 12/25/19 18:05 - Laboratory Result Diagrams: 12/25/19 18:18 12/25/19 18:18 Laboratory results interpreted by me: 12/25/19 12/25/19 18:18 18:18 WBC 11.5 H RDW 17.1 H Urine Protein 30 H Urine Blood LARGE H Urine Urobilinogen 4.0 H Leukocyte Esterase Rfl TRACE H Discharge - Discharge Clinical Impression: Dysmenorrhea Condition: Stable Disposition: HOME, SELF-CARE Instructions: Dysmenorrhea ([facility]) Additional Instructions: Maintain fluid intake Proper hygienic technique Keep the skin clean Safe sexual practices with condoms everytime Tylenol/ibuprofen as needed F/u with your PCM/OBGYN in 3-5 days for a recheck Return to the ED with any development of CROOKS/fever, trouble with vision, eye redness, worsening pain, urethral discharge, urinary retention, blood in the urine, flank pain, abdominal pain, n/v, Chest Pain, shortness of breath, joint pains, trouble breathing, or any other worsening/concerning symptoms as needed otherwise. Prescriptions: Promethazine HCl [Phenergan 25 mg Tablet] 1 tab PO BID #10 tablet Forms: Return to Work, Smoking Cessation Education Referrals: JON RAND MD [Primary Care Provider] - Follow up as needed [facility] [Provider Group] - Follow up in 3-5 days
== END 2019-12-25 20:14 | disposition home or self-care (01) ==
LOC: ER 17:52
DX: N94.6 Dysmenorrhea, unspecified (principal); R05 Cough; R51 Headache; F17.210 Nicotine dependence, cigarettes, uncomplicated; F12.10 Cannabis abuse, uncomplicated; J45.909 Unspecified asthma, uncomplicated; Z77.090 Contact with and (suspected) exposure to asbestos
CPT/HCPCS: 36415; 76830; 80053; 81001; 83690; 84703; 85025; 86900; 86901; 99284